=== PATIENT | male | born 1965 | race Hispanic/Latino ===

== ENCOUNTER 2018-10-02 07:04 | Day surgery (SDC) | payer BC ==
[~2018-10-02 07:04] MED LIST: COUMADIN2.5 MG PO; LOVENOX100 MG/1 M SC; MULT VITAMI1 PO
[2018-10-02 09:50] VITALS: BP 128/70
== END 2018-10-02 10:08 | disposition home or self-care (01) | DRG 951 ==
LOC: ENDO 07:04
PROVIDERS: ATTEND Surgery
PROC: 0DJD8ZZ Inspection of Lower Intestinal Tract, Via Natural or Artificial Opening Endoscopic (ICD-10-PCS; principal; 2018-10-02)
DX: Z12.11 Encounter for screening for malignant neoplasm of colon (principal); K64.4 Residual hemorrhoidal skin tags; K64.8 Other hemorrhoids